=== PATIENT | female | born 1995 | race Caucasian/White ===

== ENCOUNTER 2016-04-13 11:28 | Emergency (ER) | payer BC ==
[2016-04-13] MEDS ORDERED: FAMOTIDINE 20 MG/NACL 50 ML IV ONE (11:32)
[2016-04-13] MEDS ORDERED: NS 1,000 ML IV ONE (11:32)
--- NOTE | 2016-04-13 11:37 | EDPHY ---
H & P Time Seen by Provider: 04/13/16 11:29 HPI/ROS: CHIEF COMPLAINT: Nausea/vomiting HISTORY OF PRESENT ILLNESS: Patient is a 20-year-old female who presents emergency department with nausea and vomiting starting at approximately 6 this morning. The patient drank alcohol last night but not a whole lot. This morning she woke up with nausea. She had numerous episodes of nonbloody emesis. No diarrhea. She denies abdominal pain at this time. Her last menstrual period was a few days ago. No fevers or chills. No dysuria frequency. No sick contacts or rommates. REVIEW OF SYSTEMS: My complete review of systems is negative except as mentioned in the HPI. Past Medical/Surgical History: Depression Past surgical history: Negative Social history: The patient denies marijuana use. She denies drug use. She did drink alcohol last evening. She does not smoke. Smoking Status: Current every day smoker Physical Exam: Vitals noted GENERAL: No acute distress, alert. Chilled. HEENT: Eyes normal to inspection, normal pharynx, no signs of dehydration. NECK: No thyromegaly, no lymphadenopathy, supple. RESPIRATORY: Clear to auscultation bilaterally, no rales, rhonchi or wheezing. CVS: Regular rate and rhythm, no rubs, murmurs, or gallops. ABDOMEN: Soft, nontender, nondistended, no organomegaly. Benign BACK: Normal to inspection, no CVA tenderness. SKIN: Normal color, no rash, warm, dry. No pallor. EXTREMITIES: No pedal edema, no calf tenderness, no joint swelling. NEURO/PSYCH: Alert and oriented, normal mood and affect, normal motor sensory exam. No obvious cranial nerve deficit. Constitutional: Initial Vital Signs Temperature (C) 36.6 C 04/13/16 11:39 Heart Rate 73 04/13/16 11:39 Respiratory Rate 16 04/13/16 11:39 Blood Pressure 108/54 L 04/13/16 11:39 O2 Sat (%) 100 04/13/16 11:39 O2 Delivery Mode Room Air Allergies/Adverse Reactions: No Known Allergies Allergy (Verified 04/13/16 11:38) Home Medications: Medication Instructions Recorded Ibuprofen [Motrin (*)] 800 mg PO Q6-8PRN #30 tab 11/28/15 Paxil 11/28/15 Ondansetron Odt [Zofran Odt 4 mg 4 mg PO Q4PRN PRN #7 tab 04/13/16 (*)] Medical Decision Making ED Course/Re-evaluation: In the emergency department I met EMS on arrival in took report from the fiber designer. The patient was given Zofran 4 mg IV EN route. I discussed the plan with the patient answered all her questions. Patient was given a L of normal saline for hydration. Laboratory studies were obtained. I reviewed the patient's laboratory studies[place] [address]. Her chemistry panel was normal. She had mildly elevated AST and ALT. Other LFTs were normal. Lipase was normal. 1210: I rechecked the patient. She had no new complaints. No active nausea or vomiting. Abdomen is soft, nontender nondistended. 1315: Patient is feeling much better. Patient has no abdominal complaints. No nausea. Her abdominal exam is soft nontender nondistended. I gave her warnings prior to leaving. She will return with worsening symptoms. Differential Diagnosis: My differential includes but is not limited to gastroenteritis, gastritis, dehydration, alcohol withdrawal, electrolyte abnormality, sugar abnormality, , ectopic , urinary tract infection - Data Points Laboratory Results: Laboratory Results 04/13/16 11:15 04/13/16 11:15 04/13/16 04/13/16 12:25 11:15 WBC 17.34 H 10^3/uL (3.80-9.50) RBC 4.75 10^6/uL (4.18-5.33) Hgb 15.1 g/dL (12.6-16.3) Hct 44.4 % (38.0-47.0) MCV 93.5 fL (81.5-99.8) MCH 31.8 pg (27.9-34.1) MCHC 34.0 g/dL (32.4-36.7) RDW 12.6 % (11.5-15.2) Plt Count 380 10^3/uL (150-400) MPV 10.3 fL (8.7-11.7) Neut % (Auto) 74.7 H % (39.3-74.2) Lymph % (Auto) 19.1 % (15.0-45.0) [place] % (Auto) 4.3 L % (4.5-13.0) Eos % (Auto) 0.6 % (0.6-7.6) Baso % (Auto) 0.6 % (0.3-1.7) Nucleat RBC Rel Count 0.0 % (0.0-0.2) Absolute Neuts (auto) 12.95 H 10^3/uL (1.70-6.50) Absolute Lymphs (auto) 3.31 H 10^3/uL (1.00-3.00) Absolute Monos (auto) 0.75 10^3/uL (0.30-0.80) Absolute Eos (auto) 0.11 10^3/uL (0.03-0.40) Absolute Basos (auto) 0.10 10^3/uL (0.02-0.10) Absolute Nucleated RBC 0.00 10^3/uL (0-0.01) Immature Gran % 0.7 % (0.0-1.1) Immature Gran # 0.12 H 10^3/uL (0.00-0.10) Sodium 142 mEq/L (134-144) Potassium 3.8 mEq/L (3.5-5.2) Chloride 103 mEq/L (97-110) Carbon Dioxide 18 L mEq/l (22-31) Anion Gap 21 mEq/L (8-16) BUN 7 mg/dL (7-23) Creatinine 0.6 mg/dL (0.6-1.0) Estimated GFR > 60 Glucose 137 H mg/dL (70-100) Calcium 9.4 mg/dL (8.5-10.4) Total Bilirubin 0.7 mg/dL (0.1-1.4) Conjugated Bilirubin 0.1 mg/dL (0.0-0.5) Unconjugated Bilirubin 0.6 mg/dL (0.0-1.1) AST 67 H IU/L (14-46) ALT 66 H IU/L (9-52) Alkaline Phosphatase 60 IU/L (38-126) Total Protein 7.7 g/dL (6.3-8.2) Albumin 4.5 g/dL (3.5-5.0) Lipase 75.0 IU/L (23-300) Beta HCG, Qual NEGATIVE Urine Color YELLOW Urine Appearance HAZY Urine pH 8.0 H (5.0-7.5) Ur Specific [place] 1.016 (1.002-1.030) Urine Protein NEGATIVE (NEGATIVE) Urine Ketones TRACE H (NEGATIVE) Urine Blood NEGATIVE (NEGATIVE) Urine Nitrate NEGATIVE (NEGATIVE) Urine Bilirubin NEGATIVE (NEGATIVE) Urine Urobilinogen NEGATIVE EU (0.2-1.0) Ur Leukocyte Esterase NEGATIVE (NEGATIVE) Ur Culture Indicated? NOT INDICATED (NI) Urine Glucose NEGATIVE (NEGATIVE) Medications Given: Discontinued Medications Sodium Chloride (Ns) 1,000 mls @ 0 mls/hr IV ONCE ONE PRN Reason: Wide Open Stop: 04/13/16 11:33 Last Admin: 04/13/16 11:41 Dose: 1,000 mls Famotidine/Sodium Chloride (Pepcid 20 Mg (Premix)) 50 mls @ 200 mls/hr IV EDNOW ONE Stop: 04/13/16 11:46 Last Admin: 04/13/16 11:46 Dose: 50 mls Departure - Departure Disposition: Home, Routine, Self-Care Clinical Impression: Vomiting Qualifiers: Vomiting type: unspecified Vomiting Intractability: non-intractable Nausea presence: with nausea Qualifier Code: (R11.2) Nausea with vomiting, unspecified Condition: Good Instructions: Acute Nausea and Vomiting (ED) Additional Instructions: Return with increasing vomiting, abdominal pain, fever or any other concerns. Drink frequent small amounts of fluid throughout the day. Referrals: Eugenia Mcdermott MD [Medical Doctor] - 5-7 days, if not improved Prescriptions: Ondansetron Odt [Zofran Odt 4 mg (*)] 4 mg PO Q4PRN PRN #7 tab PRN Reason: For Nausea & Vomiting
[2016-04-13 11:41] VITALS: O2SAT 100
[2016-04-13 11:43] LABS: % IMMATURE GRANULYOCYTES 0.7 % (0.0-1.1); ABSOLUTE IMMATURE GRANULOCYTES 0.12 10^3/uL (0.00-0.10); ADD DIFF? NO; ADD MORPH? NO; ADD SCAN? NO; ATYPICAL LYMPHOCYTE FLAG 10 (0-99); FRAGMENT RBC FLAG 0 (0-99); HEMATOCRIT 44.4 % (38.0-47.0); HEMOGLOBIN 15.1 g/dL (12.6-16.3); LEFT SHIFT FLG 0 (0-99); LIPEMIA HEMOLYSIS FLAG 90 (0-99); MEAN CELL HEMOGLOBIN 31.8 pg (27.9-34.1); MEAN CELL VOLUME 93.5 fL (81.5-99.8); MEAN PLATELET VOLUME 10.3 fL (8.7-11.7); PLATELET CLUMPS FLAG 0 (0-99); PLATELET COUNT 380 10^3/uL (150-400); RED BLOOD CELL COUNT 4.75 10^6/uL (4.18-5.33); RED CELL DISTRIBUTION WIDTH 12.6 % (11.5-15.2)
[2016-04-13 12:06] LABS: ALANINE AMINOTRANSFERASE 66 IU/L (9-52); ALBUMIN 4.5 g/dL (3.5-5.0); ALKALINE PHOSPHATASE 60 IU/L (38-126); ANION GAP 21 mEq/L (8-16); ASPARTATE AMINOTRANSFERASE 67 IU/L (14-46); BILIRUBIN,TOTAL 0.7 mg/dL (0.1-1.4); BILIRUBIN-CONJUGATED 0.1 mg/dL (0.0-0.5); BILIRUBIN-UNCONJUGATED 0.6 mg/dL (0.0-1.1); CALCIUM 9.4 mg/dL (8.5-10.4); CARBON DIOXIDE 18 mEq/l (22-31); CHLORIDE 103 mEq/L (97-110); CREATININE 0.6 mg/dL (0.6-1.0); GLOMERULAR FILTRATION RATE > 60; GLUCOSE 137 mg/dL (70-100); POTASSIUM 3.8 mEq/L (3.5-5.2); SODIUM 142 mEq/L (134-144); TOTAL PROTEIN 7.7 g/dL (6.3-8.2)
[2016-04-13 12:38] LABS: COLOR YELLOW; LEUKOCYTE ESTERASE,URINE NEGATIVE (NEGATIVE); NITRITE,URINE NEGATIVE (NEGATIVE)
[2016-04-13 13:27] VITALS: BP 95/59; PULSE 69; RESP 14; TEMP 98.4
== END 2016-04-13 13:26 | disposition home or self-care (01) ==
LOC: EDUNIT#
DX: R11.2 Nausea with vomiting, unspecified (principal); F17.200 Nicotine dependence, unspecified, uncomplicated
CPT/HCPCS: 96365